=== PATIENT | female | born 1970 | race African-American/Black ===

== ENCOUNTER 2022-02-23 08:30 | Day surgery (SDC) | payer OTHER ==
[~2022-02-23] VITALS: Ht 157.5 cm; Wt 65.5 kg
[2022-02-23 09:33] LABS: BASOPHILS % (AUTO) 0.9 % (0.0-5.0); EOSINOPHILS % (AUTO) 1.3 % (0.0-8.0); LYMPHOCYTES % (AUTO) 33.4 % (21.0-51.0); MEAN CORPUSCULAR HEMOGLOBIN 27.4 pg (27.0-33.0); MEAN CORPUSCULAR HGB CONC 31.8 g/dL (32.0-36.0); MEAN CORPUSCULAR VOLUME 86.3 fL (79-99); MONOCYTES % (AUTO) 6.9 % (3.0-13.0); NEUTROPHILS % (AUTO) 57.3 % (40.0-77.0); PLATELET COUNT (AUTO) 272 K/uL (130-400); RED BLOOD CELL COUNT(AUTO) 4.52 MIL/uL (4.00-5.50); RED CELL DISTRIBUTION WIDTH 14.1 % (11.0-15.5); WHITE BLOOD COUNT (AUTO) 5.4 K/uL (4.8-10.8)
[2022-02-23 09:47] LABS: ALBUMIN 4.1 g/dL (3.5-5.0); CREATININE 0.7 mg/dL (0.5-1.5); POTASSIUM 3.8 mmol/L (3.5-5.1); TOTAL PROTEIN, SERUM 8.5 g/dL (6.0-8.3)
[2022-02-23] MEDS ORDERED: 0.9%NACL 1000ML 1,000 ML IV ONE (09:49)
[2022-02-23] MEDS ORDERED: LEVO25CA4 PO (10:42)
[2022-02-23 10:46] VITALS: BP 142/84
[2022-02-23] MEDS ORDERED: PROPOFOL 10 MG/ML 20ML VIAL IV ONE ×2 (12:21→12:47)
[2022-02-23] MEDS ORDERED: LIDOCAINE HCL 1% 20 ML VIAL ONE (12:21)
[2022-02-23 13:20] VITALS: BP 144/80
[2022-02-23 13:35] VITALS: BP 140/95
[2022-02-23 13:50] VITALS: BP 144/93
[2022-02-23 14:05] VITALS: BP 134/91
== END 2022-02-23 14:15 | disposition home or self-care (01) ==
LOC: ENDO 08:30 → DAH 08:30 → ENDO 14:15
PROVIDERS: ATTEND Internal Medicine Gastroenterology
DX: R10.33 Periumbilical pain (principal); K21.9 Gastro-esophageal reflux disease without esophagitis; E03.9 Hypothyroidism, unspecified; K29.50 Unspecified chronic gastritis without bleeding; K63.5 Polyp of colon; K64.0 First degree hemorrhoids; K21.00 Gastro-esophageal reflux disease with esophagitis, without bleeding; Z98.891 History of uterine scar from previous surgery; Z79.890 Hormone replacement therapy
CPT/HCPCS: 45380; 43239; 87426; 82150; 80053; 84703; 83690; 85025; 36415; J7030; J2704 ×2; A4620; A4215 ×2; A4223; A4222; A4221; A4663; A4606